=== PATIENT | male | born 1980 | race Caucasian/White ===

== ENCOUNTER 2020-11-12 17:06 | Inpatient (IN) | payer MEDICARE, MEDICAID, SELFPAY ==
[2020-11-12 17:07] VITALS: BP 123/78; PULSE 90; RESP 20; TEMP 37; O2SAT 97; BMI 22.4
--- NOTE | 2020-11-12 17:12 | ED_ITS ---
HPI - Psych General: Chief Complaint: Psychiatric Symptoms Stated Complaint: SI Time Seen by Provider: 11/12/20 17:07 Source: patient and EMS Mode of arrival: EMS Limitations: no limitations History of Present Illness: HPI Narrative: 40-year-old male who states he has had increased depression. He states he is having a lot of problems at home and called EMS today because he is been having suicidal thoughts of the last 2 days. He states she just been feeling hopeless and does not want to live anymore and wants to get help. Denies any previous psych admissions. He denies any meds. He denies any worsening improving factors. MD complaint: suicidal ideation Onset (ago): day(s) Associated symptoms: Reports depression and suicidal ideation Review of Systems Const: Denies: fever(s), chills, body aches or change in appetite Eyes: Denies: blurry vision or eye discomfort ENMT: Denies: throat pain or dental pain Card: Denies: chest pain Resp: Denies: dyspnea GI: Denies: abdominal pain, nausea, vomiting or diarrhea : Denies: dysuria Musc: Denies: neck pain or back pain Skin/Breast: Denies: rash Neuro: Denies: headache(s) Psych: Reports: depression and suicidal ideation Moshe/Lymph: Denies: easy bruising All/Imm: Denies: urticaria Physical Exam Const: COMMON NORMALS: no acute distress, patient oriented x3 and healthy appearing HENMT: COMMON NORMALS: normocephalic and atraumatic HEAD & SCALP: normocephalic and atraumatic Eye: COMMON NORMALS: Equal, round and reactive pupils present and EOMs intact bilaterally PUPIL: Yes Equal, round and reactive pupils present Neck/C-Spine: COMMON NORMALS: full ROM and supple Chest: COMMONS NORMALS: normal inspection of the chest and normal palpation of entire chest wall Resp: COMMON NORMALS: normal respiratory effort, No retractions, No use of accessory muscles and clear to auscultation bilaterally AUSCULTATION: clear to auscultation bilaterally Cardio: COMMON NORMALS: regular rate, regular rhythm and No murmurs present ( Cardio) RATE: regular rate RHYTHM: regular rhythm GI: COMMON NORMALS: Normal to inspection, nondistended, normoactive bowel sounds present, Soft to palpation, non-tender and no masses PALPATION: Yes Soft to palpation Extremity: COMMON NORMALS: normal to inspection and full ROM Neuro: COMMON NORMALS: patient oriented x3, moves all extremities and no focal motor deficits Psych: COMMON NORMALS: mental status grossly normal, Normal thought process present and cooperative MOOD & AFFECT: Yes depressed mood THOUGHT PROCESS: Normal thought process present THOUGHT CONTENT: Yes Suicidality present Skin: COMMON NORMALS: no rashes or lesions noted and no wounds GENERAL SKIN EXAM: no rashes or lesions noted MDM - Psych MDM Narrative: Medical decision making narrative: Amish presents here with suicidal ideations. I spoke to his psychiatrist and patient is medically cleared will admit. He has been stable while here. Lab Data: Labs: Lab Results 11/12/20 11/12/20 Range/Units 17:31 17:31 WBC 10.5 H (4.0-10.0) 10^3/ uL RBC 4.68 (4.1-5.3) 10^6/u L Hgb 14.5 (11.7-16.6) g/dL Hct 43.6 (42.0-52.0) % MCV 93.2 (80-94) fL MCH 31.0 (28.0-34.0) pg MCHC 33.3 (30.0-36.0) g/dL RDW 11.9 L (12.1-15.1) % Plt Count 345 (130-400) 10^3/c mm MPV 9.2 (7.4-10.4) fL Neut % (Auto) 69.2 % Lymph % (Auto) 20.1 % [place] % (Auto) 5.9 % Eos % (Auto) 3.8 % Baso % (Auto) 0.8 % Neut # (Auto) 7.28 (1.8-7.7) 10^3/u L Lymph # (Auto) 2.1 (0.8-4.8) 10^3/u L [place] # (Auto) 0.6 (0.2-0.9) 10^3/u L Eos # (Auto) 0.4 (0.0-0.8) 10^3/u L Baso # (Auto) 0.1 (0.0-0.1) 10^3/u L Nucleated RBC % (a uto) 0 % Nucleated RBCs # 0.0 /100WBC Urine Opiates Scre en Negative (Negative) ng/mL Ur Barbiturates Sc reen Negative (Negative) ng/mL Ur Phencyclidine S crn Negative (Negative) ng/mL Ur Amphetamines Sc reen Positive H (Negative) ng/mL U Benzodiazepines Scrn Negative (Negative) ng/mL Urine Cocaine Scre en Negative (Negative) ng/mL U Marijuana (THC) Screen Positive H (Negative) ng/mL Discharge Plan Discharge Patient Disposition: Admitted As Inpatient Clinical Impression: Suicidal ideation Condition: Stable Coding Level of Care Code ED Dental Assistant for Alycia Duke Exam Comprehensive
[2020-11-12 17:52] LABS: Basophils # 0.1 10^3/uL (0.0-0.1); Basophils % 0.8 %; Eosinophils # 0.4 10^3/uL (0.0-0.8); Eosinophils % 3.8 %; Hematocrit 43.6 % (42.0-52.0); Hemoglobin 14.5 g/dL (11.7-16.6); Lymphocytes # 2.1 10^3/uL (0.8-4.8); Lymphocytes % 20.1 %; Mean Corpuscular HGB Conc 33.3 g/dL (30.0-36.0); Mean Corpuscular Volume 93.2 fL (80-94); Mean Platelet Volume 9.2 fL (7.4-10.4); Monocytes # 0.6 10^3/uL (0.2-0.9); Monocytes % 5.9 %; Neutrophils # 7.28 10^3/uL (1.8-7.7); Neutrophils % 69.2 %; Nucleated Red Blood Cells % 0 %; Platelet Count 345 10^3/cmm (130-400); Red Blood Count 4.68 10^6/uL (4.1-5.3); Red Cell Distribution Width 11.9 % (12.1-15.1); White Blood Count 10.5 10^3/uL (4.0-10.0)
[2020-11-12 18:05] LABS: Amphetamines Screen Urine Positive (Negative); Barbiturates Screen Urine Negative (Negative); Benzodiazepines Screen Urine Negative (Negative); Cocaine Screen Urine Negative (Negative); Opiate Screen Urine Negative (Negative); PCP Screen Urine Negative (Negative); THC Screen Urine Positive (Negative)
[2020-11-12 18:26] LABS: Alanine Aminotransferase 18 U/L (0-41); Albumin Level 4.6 g/dL (3.5-5.2); Alkaline Phosphatase 125 IU/L (40-130); Anion Gap 12.2 (5-19); Aspartate Amino Transferase 20 U/L (0-40); Blood Urea Nitrogen 9 mg/dL (6-20); Calcium 9.7 mg/dL (8.5-10.5); Carbon Dioxide 26 mmol/L (22-29); Chloride 102 mmol/L (98-107); Glomerular Filtration Rate 93.9 mL/min (90-130); Glucose 92 mg/dL (65-115); Osmolality Calculated 280 mOsm/kg (285-295); Potassium 4.2 mmol/L (3.5-5.1); Sodium 136 mmol/L (136-145); Total Bilirubin 0.6 mg/dL (0.15-1.2); Total Protein 7.6 g/dL (6.6-8.7)
[2020-11-12 18:28] LABS: Acetaminophen < 5.0 ug/mL (10-30); Alcohol Level < 10 mg/dL (0-10); Salicylate < 0.3 mg/dL (3-10)
[2020-11-12] MEDS: LORazepam 2 mg Tablet PO (18:38)
[2020-11-12 19:29] VITALS: BP 126/68; PULSE 82; RESP 18; O2SAT 98
--- NOTE | 2020-11-12 19:29 | PC.NURSE ---
pt report called to Keke RN in SBAR format.
[2020-11-12 20:02] VITALS: BP 135/73; PULSE 112; RESP 18; TEMP 36.7; O2SAT 96
[2020-11-12 20:38] VITALS: BP 135/73; PULSE 112; RESP 18; TEMP 36.7; O2SAT 96
[2020-11-13 06:00] VITALS: BP 100/54; PULSE 75; RESP 15; TEMP 36.8; O2SAT 96
[2020-11-13 14:00] VITALS: BP 109/65; PULSE 78; RESP 18; TEMP 38.2; O2SAT 91
--- NOTE | 2020-11-13 16:37 | PM.NHP ---
Providers/Chief Complaint Admitting Physician: Jose Shaikh MD Chief Complaint: SI HPI NPU History of Present Illness Amish Laura is a 40 year old male who presented to the emergency department with the following report: Chief Complaint: Psychiatric Symptoms Stated Complaint: SI Time Seen by Provider: 11/12/20 17:07 Source: patient and EMS Mode of arrival: EMS Limitations: no limitations History of Present Illness: HPI Narrative: 40-year-old male who states he has had increased depression. He states he is having a lot of problems at home and called EMS today because he is been having suicidal thoughts of the last 2 days. He states she just been feeling hopeless and does not want to live anymore and wants to get help. Denies any previous psych admissions. He denies any meds. He denies any worsening improving factors. MD complaint: suicidal ideation Onset (ago): day(s) Associated symptoms: Reports depression and suicidal ideation. He was admitted to the neuropsychiatric unit for definitive treatment of those issues. He presents today reporting that he is okay with mostly being a poor historian with thought disorder and clear psychosis. He denied drug use though his drug screen was positive for cannabis and methamphetamines. The combination of him being Psychotic and coming off of meth made for a very uneventful interview. He answers every question with a H UH and requested to be repeated and then after I repeated it he had no intelligible answer for the question. Either said things that were not accurate obviously like he had not used any drugs or stares blankly at me. He denied my offer for an antipsychotic to help with his thought disorder. Psychiatric history: He denied any psychiatric hospitalizations. I could see about a 14 to 16-year history of outpatient services at [facility] [place]. Diagnoses of depression, intermittent explosive disorder, alcohol use disorder and other addiction issues. Substance abuse history: History of cigarette, alcohol, marijuana, methamphetamine noted. Remainder of his history not available by interview reviewed in the chart. Noncontributory to his current presentation. Meds NPU Home Medications Medication Instructions Recorded Confirmed Last Taken Type No Known Home Medications 11/12/20 11/12/20 Unknown History Allergies Allergy/AdvReac Type Severity Reaction Status Date / Time No Known Allergies Allergy Verified 11/12/20 17:17 Mental Status Exam MSE Comments: This is a underweight white male with limited dress, grooming and eye contact. No abnormal movements except for her agitation. Uncooperative with exam and modest. Speech was limited and decreased rate and volume. Mood described as okay affect confused. Thought process linear at times but mostly disorganized. Thought content: Patient homicidal or homicidal intent, delusions reported but paranoia noted, he denied auditory or visual hallucinations. Attention and concentration were impaired and memory was unreliable but none were formally tested. He is alert and oriented to person and place. Insight and judgment are impaired control is impaired. Vitals/I&O/Wt Last Vital Signs Temp 98.1 F 11/13/20 22:00 Pulse 82 11/13/20 22:00 Resp 19 H 11/13/20 22:00 BP 130/85 11/13/20 22:00 Pulse Ox 98 11/13/20 22:00 Weight last 48 hrs Weight 64.864 kg Data NPU : 11/12/20 17:31 11/12/20 17:31 A&P Assessment and plan (1) Methamphetamine use: Status: Acute (2) Cannabis abuse: Status: Acute (3) Psychosis: Status: Acute (4) Suicidal ideation: Status: Acute Additional A&P Information This is a 40-year-old white male with a long history of mental health treatment and addiction issues who presents in active addiction, likely withdrawal from methamphetamine with significant thought disorder. 1. Continue current medication. We will continue to offer an antipsychotic. 2. Continue 15 effective safety. 3. Encourage individual, group and milieu therapy. 4. Encourage sober living treatment after discharge at the highest level of care to which he is willing to commit. Involuntary Hold Information 96 Hour Hold: 96 Hour Involuntary Admission: No Attestations NPU Medical Necessity Statement*: Inpatient hospitalization is medically necessary and the clinically appropriate intervention at this time. Monitor medications and make changes as indicated. He will be in the hospital for over 2 midnights. Likely length of stay 3 to 5 days. Coding Level of Care Code Acute Naturopath for Alycia Duke Diagnoses Methamphetamine use F15.10 Cannabis abuse F12.10 Psychosis F29 Suicidal ideation R45.85
[2020-11-13] MEDS: hyDROXYzine 25 mg Capsule 50 MG PO (20:19)
[2020-11-13] MEDS: trazodone 50 mg Tablet PO (20:19)
[2020-11-13 22:00] VITALS: BP 130/85; PULSE 82; RESP 19; TEMP 36.7; O2SAT 98
[2020-11-14 06:00] VITALS: BP 115/72; PULSE 68; RESP 14; TEMP 36.9; O2SAT 98
[2020-11-14 14:00] VITALS: BP 104/64; PULSE 77; RESP 20; TEMP 36.5; O2SAT 97
--- NOTE | 2020-11-14 17:57 | P.PN_ITS ---
Subjective NPU Subjective: Interval history: Amish presents today with some clear improvement in his thought disorder. He was able to acknowledge with some prodding that he is struggling with methamphetamines but he mostly wanted to point to his discord with his girlfriend as his difficulty. With much conversation he was very resistant to the idea of addiction treatment and continued to be not interested in initiation of medication or seeming very invested in treatment. He reports he is eating fine and sleeping well. Mental Status Exam MSE Comments: This is a underweight white male with limited dress, grooming and eye contact. No abnormal movements except for psychomotor retardation. Mor e cooperative with exam in no acute distress. Speech was limited and more normal rate and volume. Mood described as okay affect less confused. Thought process linear at times but mostly disorganized, but improving. Thought content: Patient denied suicidal or homicidal ideations , no delusions reported but paranoia noted, he denied auditory or visual hallucinations. Attention and concentration were impaired, but improving and memory was unreliable but none were formally tested. He is alert and oriented to person and place. Insight and judgment are impaired, but improving control is impaired. Vitals/I&O/Wt Last Vital Signs Temp 97.9 F 11/14/20 20:11 Pulse 63 11/14/20 20:11 Resp 17 11/14/20 20:11 BP 93/57 11/14/20 20:11 Pulse Ox 98 11/14/20 20:11 Data NPU : 11/12/20 17:31 11/12/20 17:31 A&P Additional A&P Information (1) Methamphetamine use: (2) Cannabis abuse: (3) Psychosis: (4) Suicidal ideation: Additional A&P Information This is a 40-year-old white male with a long history of mental health treatment and addiction issues who presents in active addiction, likely withdrawal from methamphetamine with significant thought disorder. 1. Continue current medication. We will continue to offer an antipsychotic. 2. Continue 15 effective safety. 3. Encourage individual, group and milieu therapy. 4. Encourage sober living treatment after discharge at the highest level of care to which he is willing to commit. Involuntary Hold Information 96 Hour Hold: 96 Hour Involuntary Admission: No Attestations NPU Medical Necessity Statement*: Inpatient hospitalization is medically necessary and the clinically appropriate intervention at this time. Monitor medications and make changes as indicated. Likely length of stay 1-3 days. Coding Level of Care Code Acute Construction Administrative Assistant for Chg Leilani
[2020-11-14 20:11] VITALS: BP 93/57; PULSE 63; RESP 17; TEMP 36.6; O2SAT 98
[2020-11-14] MEDS: trazodone 50 mg Tablet PO (20:19)
--- NOTE | 2020-11-14 20:24 | PC.NURSE ---
PRN TRAZODONE ADMINISTERED TRAZODONE 50MG PO PER PT REQUEST FOR SLEEP AID. WILL MONITOR FOR MEDICATION EFFECTIVENESS.
[2020-11-15 06:00] VITALS: BP 102/68; PULSE 72; RESP 17; TEMP 36.2; O2SAT 98
--- NOTE | 2020-11-15 13:38 | P.DS_ITS ---
Diagnoses at Discharge Discharge Diagnosis (1) Methamphetamine use: Status: Acute (2) Cannabis abuse: Status: Acute (3) Psychosis: Status: Acute (4) Suicidal ideation: Status: Resolved Reason for Visit Reason for Visit: SI Brief History: History of Present Illness Amish Laura is a 40 year old male who presented to the emergency department with the following report: Chief Complaint: Psychiatric Symptoms Stated Complaint: SI Time Seen by Provider: 11/12/20 17:07 Source: patient and EMS Mode of arrival: EMS Limitations: no limitations History of Present Illness: HPI Narrative: 40-year-old male who states he has had increased depression. He states he is having a lot of problems at home and called EMS today because he is been having suicidal thoughts of the last 2 days. He states she just been feeling hopeless and does not want to live anymore and wants to get help. Denies any previous psych admissions. He denies any meds. He denies any worsening improving factors. MD complaint: suicidal ideation Onset (ago): day(s) Associated symptoms: Reports depression and suicidal ideation. He was admitted to the neuropsychiatric unit for definitive treatment of those issues. He presents today reporting that he is okay with mostly being a poor historian with thought disorder and clear psychosis. He denied drug use though his drug screen was positive for cannabis and methamphetamines. The combination of him being Psychotic and coming off of meth made for a very uneventful interview. He answers every question with a H UH and requested to be repeated and then after I repeated it he had no intelligible answer for the question. Either said things that were not accurate obviously like he had not used any drugs or stares blankly at me. He denied my offer for an antipsychotic to help with his thought disorder. Psychiatric history: He denied any psychiatric hospitalizations. I could see about a 14 to 16-year history of outpatient services at [facility]. Diagnoses of depression, intermittent explosive disorder, alcohol use disorder and other addiction issues. Substance abuse history: History of cigarette, alcohol, marijuana, methamphetamine noted. Remainder of his history not available by interview reviewed in the chart. Noncontributory to his current presentation. Hospital Course Hospital Course Amish presented to the emergency department confused, psychotic and with concerns for lethality. He was admitted to the neuropsychiatric unit for definitive treatment of those issues. He slowly acclimated to the individual, group and milieu therapies provided he endorsed a plan to discontinue his active addictive behavior. He was never open to a trial of medication. Slowly his withdrawal was resolving and he was able to work with his significant other to get a resolution in their dispute and was desirous of discharge. He was ambivalent about treatment. He was able to contract for safety prior to discharge. During the hospitalization, patient had routine laboratory studies which were within normal limits except for few outliers. Additionally he had a general medical evaluation which was also within normal limits and revealed no new acute processes. Discharge Summary: At the time of discharge, lethality was denied and psychosis was resolving. Mood and anxiety were well managed. Patient endorsed a plan to avoid all drugs of abuse and follow-up with the aftercare recommendations of the treatment team. Patient was evaluated and deemed to be absent credible lethality, and had achieved the maximum benefit from an inpatient hospitalization, so was discharged. Involuntary Hold Information 96 Hour Hold: 96 Hour Involuntary Admission: No Mental Status Exam MSE Comments: This is a underweight white male with limited dress, grooming and eye contact. No abnormal movements except for psychomotor retardation. More cooperative with exam in no acute distress. Speech was limited and more normal rate and volume. Mood described as better affect less confused. Thought process linear at times and becoming more organized. Thought content: Patient denied suicidal or homicidal ideations , no delusions reported but paranoia noted which is decreasing, he denied auditory or visual hallucinations. Attention and concentration were impaired, but improving and memory was becoming more reliable but none were formally tested. He is alert and oriented x3. Insight and judgment are limited, but improving control is impaired. Discharge Data Vitals: Last Vital Signs Temp 97.2 F L 11/15/20 06:00 Pulse 72 11/15/20 06:00 Resp 17 11/15/20 06:00 BP 102/68 11/15/20 06:00 Pulse Ox 98 11/15/20 06:00 Discharge Plan Discharge Patient Disposition: Home Condition: Stable Prescriptions: Continued No Known Home Medications RF: 0 Discharge Orders: Discharge Order (Routine); Ordered 11/15/20 Ordered By: Jose Shaikh Referrals: [facility] [Outside] - 11/20/20 1:00 pm (You Have a phone call apppointment with Cherise Stone LPC from [facility] WednesdayNovember 20 at 1 PM. Please be where micky have access and service so you can be reached. ) Discharge Diet: Regular Discharge Activity: Resume usual activity Discharge Attestations NPU Time Spent in Discharge Care*: less than 30 min Specific Discharge Activities: Specific discharge activities: educating patient, discussing with telephonic case manager/social workers/dc planners, documenting/other paperwork and evaluating patient/reviewing data Coding Level of Care Code Acute Government Guard for Alycia Fwd Diagnoses Methamphetamine use F15.10 Cannabis abuse F12.10 Psychosis F29 Suicidal ideation R40.856
[2020-11-15 13:39] VITALS: BP 102/68; PULSE 72; RESP 17; TEMP 36.2; O2SAT 98
== END 2020-11-15 17:28 | disposition home or self-care (01) | DRG 897 ==
LOC: ER 17:14 → NP 18:32
PROVIDERS: Admitting Provider Psychiatry & Neurology Psychiatry; Emergency Provider Emergency Medicine; Visit Provider Psychiatry & Neurology Psychiatry
DX: F15.93 Other stimulant use, unspecified with withdrawal (principal); R45.851 Suicidal ideations; F29 Unspecified psychosis not due to a substance or known physiological condition; F32.9 Major depressive disorder, single episode, unspecified; F12.10 Cannabis abuse, uncomplicated; F17.210 Nicotine dependence, cigarettes, uncomplicated
CPT/HCPCS: 12345; 80053; 80306; 80307; 85025; 90686; 99284

== ENCOUNTER → 2021-11-19 13:56 | Outpatient (BNVA) | payer MEDICARE, MEDICAID, SELFPAY | PROVIDERS: Visit Provider Nurse Practitioner | DX: F33.1 Major depressive disorder, recurrent, moderate (principal); F17.210 Nicotine dependence, cigarettes, uncomplicated; F15.20 Other stimulant dependence, uncomplicated; F12.20 Cannabis dependence, uncomplicated | CPT/HCPCS: 99215 ==

== ENCOUNTER → 2022-01-05 12:57 | Outpatient (BNVA) | payer MEDICARE, MEDICAID, SELFPAY | PROVIDERS: Visit Provider Nurse Practitioner | DX: F33.1 Major depressive disorder, recurrent, moderate (principal); F17.210 Nicotine dependence, cigarettes, uncomplicated; F12.20 Cannabis dependence, uncomplicated; F15.20 Other stimulant dependence, uncomplicated | CPT/HCPCS: 99214 ==

== ENCOUNTER → 2022-03-02 14:37 | Outpatient (BNVA) | payer MEDICARE, MEDICAID, SELFPAY | PROVIDERS: Visit Provider Nurse Practitioner | DX: F33.1 Major depressive disorder, recurrent, moderate (principal); F17.210 Nicotine dependence, cigarettes, uncomplicated; F12.20 Cannabis dependence, uncomplicated | CPT/HCPCS: 99214 ==

== ENCOUNTER → 2024-08-21 14:02 | Outpatient (BNVA) | payer MEDICARE, SELFPAY | PROVIDERS: Visit Provider Family Medicine | DX: M79.644 Pain in right finger(s) (principal) | CPT/HCPCS: 73140 ==

== ENCOUNTER → 2024-09-04 13:30 | Outpatient (BNVA) | payer MEDICARE, SELFPAY | PROVIDERS: PCP Nurse Practitioner Family; Visit Provider Nurse Practitioner Family | DX: S62.609A Fracture of unspecified phalanx of unspecified finger, initial encounter for closed fracture (principal); X58.XXXA Exposure to other specified factors, initial encounter | CPT/HCPCS: 73130 ==

== ENCOUNTER → 2024-12-04 08:38 | Outpatient (BNVA) | payer MEDICARE, SELFPAY | PROVIDERS: PCP Nurse Practitioner Family; Visit Provider Specialist | DX: M20.011 Mallet finger of right finger(s); S62.636D Displaced fracture of distal phalanx of right little finger, subsequent encounter for fracture with routine healing; W54.8XXD Other contact with dog, subsequent encounter | CPT/HCPCS: 73130; 99204 ==

== ENCOUNTER → 2025-10-24 11:36 | Outpatient (BNVA) | payer MEDICARE, SELFPAY | PROVIDERS: PCP Nurse Practitioner Family; Visit Provider Nurse Practitioner | DX: Z79.899 Other long term (current) drug therapy (principal) | CPT/HCPCS: 80061; 83036 ==

== ENCOUNTER → 2025-11-13 17:22 | Outpatient (BNVA) | payer MEDICARE, SELFPAY | PROVIDERS: PCP Nurse Practitioner Family; Visit Provider Family Medicine | DX: Z20.822 Contact with and (suspected) exposure to COVID-19 (principal) | CPT/HCPCS: 87426 ==